=== PATIENT | female | born 1975 | race Caucasian/White ===

== ENCOUNTER → 2016-07-08 | Outpatient (CLI) | payer BC ==
--- NOTE | 2016-07-08 10:58 | MM ---
Reason for exam: additional evaluation requested from prior study. Last mammogram was performed 1 year and 2 months ago. Physical Findings: Nurse did not find any significant physical abnormalities on exam. MG 3D Diag Mammo W/Cad JUAN C Bilateral CC and MLO view(s) were taken. Prior study comparison: May 14, 2015, right breast MG 3d work up w/cad RT. May 14, 2015, right breast US breast workup limited RT. May 08, 2015, bilateral MG screening mammo w CAD. There are scattered fibroglandular densities. Nodular asymmetry lateral left breast middle depth does not persist on additional views. No significant new findings when compared with previous films. These results were verbally communicated with the patient and result sheet given to the patient on 07/08/16. ASSESSMENT: Negative, BI-RAD 1 RECOMMENDATION: Routine screening mammogram of both breasts in 1 year. Manage on a clinical basis with regard to left breast pain.
== END | disposition home or self-care (01) ==
LOC: RADMAMWWP 09:38
PROVIDERS: ATTEND Obstetrics & Gynecology
DX: R92.8 Other abnormal and inconclusive findings on diagnostic imaging of breast (principal)
CPT/HCPCS: G0204; G0279

== ENCOUNTER → 2016-12-28 | Outpatient (CLI) | payer BC ==
[2016-12-28 16:42] LABS: Follicle Stimulating Hormone 1.5 mIU/mL; Prolactin 24.7 ng/mL (3.0-18.6)
== END | disposition home or self-care (01) ==
LOC: LABWHC1 15:38
PROVIDERS: ATTEND Obstetrics & Gynecology
DX: N92.6 Irregular menstruation, unspecified (principal)
CPT/HCPCS: 36415; 82670; 83001; 83002; 84146; 84439; 84443

== ENCOUNTER → 2017-01-13 | Outpatient (CLI) | payer BC ==
--- NOTE | 2017-01-13 14:22 | US ---
EXAMINATION TYPE: US pelvic complete DATE OF EXAM: 01/13/2017 COMPARISON: NONE CLINICAL HISTORY: N93.8 Dysfunctional uterine bleeding. scheduled for an ablation next month TECHNIQUE: Transabdominal (TA) Date of LMP: bleeding x 3 mos EXAM MEASUREMENTS: Uterus: 9.6 x 4.9 x 6.5 cm Endometrial Stripe: 1.2 cm Right Ovary: 5.4 x 3.1 x 4.7 cm Left Ovary: 3.5 x 1.3 x 2.7 cm 1. Uterus: Anteverted wnl 2. Endometrium: wnl 3. Right Ovary: seen with a 3.4cm cyst 4. Left Ovary: wnl 5. Bilateral Adnexa: wnl 6. Posterior cul-de-sac: none seen IMPRESSION: Probable functional right ovarian cyst which can be confirmed with follow-up study in 4-6 weeks.
== END ==
LOC: RADUSWWP 13:58
PROVIDERS: ATTEND Obstetrics & Gynecology
DX: N93.8 Other specified abnormal uterine and vaginal bleeding (principal)
CPT/HCPCS: 76856

== ENCOUNTER → 2017-01-31 | Outpatient (CLI) | payer BC ==
[2017-01-31 14:30] LABS: Basophils # (A) 0.1 k/uL (0-0.2); Basophils % (A) 1 %; CH 31.5; Eosinophils # (A) 0.4 k/uL (0-0.7); Eosinophils % (A) 4 %; HCT 48.3 % (34.0-46.0); HDW 2.42; HGB 15.6 gm/dL (11.4-16.0); Luc # (Auto) 0.12; Luc % (Auto) 1; Lymphocytes # (A) 2.7 k/uL (1.0-4.8); Lymphocytes % (A) 29 %; MCH 29.9 pg (25.0-35.0); MCHC 32.2 g/dL (31.0-37.0); MCV 92.9 fL (80.0-100.0); Mean Platelet Volume 8.2; Monocytes # (A) 0.6 k/uL (0-1.0); Monocytes % (A) 7 %; Neutrophils # (A) 5.4 k/uL (1.3-7.7); Neutrophils % (A) 58 %; RDW 14.1 % (11.5-15.5); WBC 9.2 k/uL (3.8-10.6); WBC (Perox) 8.94
== END | disposition home or self-care (01) ==
LOC: LABPAT 14:05
PROVIDERS: ATTEND Obstetrics & Gynecology
DX: Z01.818 Encounter for other preprocedural examination (principal)
CPT/HCPCS: 85025

== ENCOUNTER 2017-02-10 09:18 | Day surgery (SDC) | payer BC ==
[2017-02-03 16:09] VITALS: BMI 31.7
--- NOTE | 2017-02-10 08:48 | P.HPOB ---
History of Present Illness H&P Date: 02/10/17 Chief Complaint: Dysfunctional uterine bleeding Patient is a 42-year-old female who has a complaint of irregular vaginal bleeding. She reports that for approximately 2 months she has had bleeding that is basically daily. She had been having very irregular cycles before that but she continues to have some bleeding every day. She is scheduled for D&C hysteroscopy with NovaSure ablation. Her goal is to be amenorrheic. She is aware of risks/benefits and alternatives. Multiple alternatives were discussed the patient including hormones or even just close observation as there is no specific made to treat this. However due to the fact that she bleeds all the time and she cannot function well due to the bleeding we are doing a NovaSure ablation with the procedure. On physical exam vital signs are stable and afebrile. Heart regular, lungs clear, extremities without pain. Abdomen soft and tender. Bowel sounds positive. Pelvic exams unremarkable. Assessment dysfunctional bleeding. Plan D&C with hysteroscopy NovaSure. Past Medical History Additional Past Medical History / Comment(s): hx. endometriosis, MIGRAINES, IBS WITH CONSTIPATION, BLOATING & BACK ACHES. , MENORRHAGIA History of Any Multi-Drug Resistant Organisms: None Reported Past Surgical History: Tubal Ligation Additional Past Surgical History / Comment(s): lapararoscopy, colonoscopy Past Anesthesia/Blood Transfusion Reactions: Motion Sickness Past Psychological History: No Psychological Hx Reported Smoking Status: Never smoker Past Alcohol Use History: Rare Past Drug Use History: None Reported - Past Family History Mother Family Medical History: Cancer Additional Family Medical History / Comment(s): CERVICAL CANCER Medications and Allergies Home Medications Medication Instructions Recorded Confirmed Type Ibuprofen 800 mg PO DAILY PRN 02/03/17 02/03/17 History Simethicone [Phazyme] 500 mg PO DAILY PRN 02/03/17 02/03/17 History Allergies Allergy/AdvReac Type Severity Reaction Status Date / Time peanut Allergy Severe Anaphylaxis Verified 02/03/17 15:44 cat dander AdvReac Unknown Unknown Verified 02/03/17 15:57 Exam Osteopathic Statement: *. No significant issues noted on an osteopathic structural exam other than those noted in the History and Physical/Consult.
[~2017-02-10 09:18] MED LIST: DEXAMETHASONE SOD PHOSPHATE 10 MG/ML 1 ML VIAL IV ONE; HYDROmorphone 1 MG/ML 1 ML SYRINGE IVP PRN; LACTATED RINGERS 1,000 ML IV SCH; LIDOCAINE 1% 20 ML VIAL (10MG/ML) FOR IV START INTRADERMA PRN; ONDANSETRON 4 MG/2 ML VIAL IVP ONE; Pre Op ABX Message 1 EACH MISC MISCELLANE ONE; SCOPOLAMINE 1.5MG/72HR PATCH TRANSDERM ONE
[2017-02-10] MEDS ORDERED: PROPOFOL 10 MG/ML 20 ML VIAL IV ONE (10:23)
[2017-02-10] MEDS ORDERED: LIDOCAINE 1% INJ 10MG/ML (20 ML MDV) ONE (10:23)
[2017-02-10] MEDS ORDERED: KETOROLAC 30 MG/ML 1 ML VIAL ONE (10:23)
[2017-02-10] MEDS ORDERED: MIDAZOLAM 2 MG/2 ML VIAL ONE (10:23)
[2017-02-10] MEDS ORDERED: fentaNYL (PF) 50 MCG/ML 2 ML AMP ONE (10:23)
--- NOTE | 2017-02-10 10:50 | P.OP ---
Date of Procedure: 02/10/17 Preoperative Diagnosis: Dysfunctional uterine bleeding Postoperative Diagnosis: Same Procedure(s) Performed: D&C with hysteroscopy and NovaSure Implants: Anesthesia: NEYA Surgeon: Jimenez Tellez Estimated Blood Loss (ml): 3 Pathology: other (Uterine curettings) Condition: stable Disposition: same day Indications for Procedure: Operative Findings: Tissue pending Description of Procedure: Patient was taken to the operating suite where a general anesthetic was found be adequate. She was prepped and draped in normal sterile fashion and placed in dorsal lithotomy position. Initially a echo was inserted into the vagina and the anterior lip cervix identified grasped with an Allis clamp uterus is then sounded to 7 cm and cervix was dilated. Camera was inserted. Proliferative endometrium was noted therefore camera was removed and sharp curettings of endometrium were obtained. This tissues collected placed on Telfa. Once this was accomplished NovaSure systems inserted with a length of 4 and a width of 2.5 it was tested enabled. Once it passes patency test it was was activated and the burn lasted for approximately 2 minutes. Once this was accomplished NovaSure system was removed and camera was reinserted with excellent burn noted. Sponge, lap, needle counts were all then correct 2 and all instruments removed. Patient tolerated surgery very well area patient taken to the recovery room in stable condition. Plan - Discharge Summary New Discharge Prescriptions: New Ibuprofen 800 mg PO Q8HR PRN #30 tablet PRN Reason: Pain No Action Ibuprofen 800 mg PO DAILY PRN PRN Reason: Pain Simethicone [Phazyme] 500 mg PO DAILY PRN PRN Reason: GAS, BLOATING Discharge Medication List Ibuprofen 800 mg PO DAILY PRN 02/03/17 [History] Simethicone [Phazyme] 500 mg PO DAILY PRN 02/03/17 [History] Ibuprofen 800 mg PO Q8HR PRN #30 tablet 02/10/17 [Rx] Follow up Appointment(s)/Referral(s): Jimenez Tellez DO [Doctor of Osteopathic Medicine] - 2 Weeks Activity/Diet/Wound Care/Special Instructions: Pelvic rest, limit stairs and driving and heavy lifting for the next few days. Call the office for any high temperatures, heavy bleeding, or severe pain
[2017-02-10 11:07] VITALS: TEMP 97
[2017-02-10 11:15] VITALS: RESP 16
[2017-02-10] MEDS ORDERED: LACTATED RINGERS 1,000 ML IV ONE ×2 (11:18)
[2017-02-10 11:57] VITALS: BP 102/68; PULSE 76
== END 2017-02-10 12:21 | disposition home or self-care (01) ==
LOC: OR 09:18
PROVIDERS: ATTEND Obstetrics & Gynecology
DX: N93.8 Other specified abnormal uterine and vaginal bleeding (principal); Z85.41 Personal history of malignant neoplasm of cervix uteri; Z91.010 Allergy to peanuts; Z91.09 Other allergy status, other than to drugs and biological substances
CPT/HCPCS: 81025; 88305; 58563; J2250; J1100; J2405; J2001; J3010; J1885; J2704

== ENCOUNTER → 2017-11-02 | Outpatient (CLI) | payer BC ==
--- NOTE | 2017-11-03 11:36 | MM ---
Reason for exam: screening (asymptomatic). Last mammogram was performed 1 year and 4 months ago. Physical Findings: A clinical breast exam by your physician is recommended on an annual basis and results should be correlated with mammographic findings. MG 3D Screening Mammo W/Cad Bilateral CC and MLO view(s) were taken. Prior study comparison: July 08, 2016, bilateral MG 3d diag mammo w/cad JUAN C. May 14, 2015, right breast MG 3d work up w/cad RT. The breast tissue is heterogeneously dense. This may lower the sensitivity of mammography. There is a stable central slightly upper and lateral middle depth right breast mass back to 2014. No suspicious abnormality in the left breast. No significant changes when compared with prior studies. ASSESSMENT: Incomplete: need additional imaging evaluation, BI-RAD 0 RECOMMENDATION: Ultrasound of the right breast. (palpable per patient) [facility] will attempt to contact patient to return for ultrasound.
== END | disposition home or self-care (01) ==
LOC: RADMAMWWP 16:54
PROVIDERS: ATTEND Obstetrics & Gynecology
DX: Z12.31 Encounter for screening mammogram for malignant neoplasm of breast (principal)
CPT/HCPCS: 77063; 77067

== ENCOUNTER → 2017-11-09 | Outpatient (CLI) | payer BC ==
--- NOTE | 2017-11-09 11:24 | USB ---
Reason for exam: additional evaluation requested from abnormal screening. Physical Findings: Nurse Summary: Patient complains of right breast lump x 2 weeks, not palpable today, left breast nodule 1.5cm upper outer quadrant (nurse mj). US Breast Workup Limited JUAN C Right limited breast ultrasound including focal area of concern, retroareolar and axilla demonstrates no cystic or solid lesion seen. Left limited breast ultrasound including focal area of concern, retroareolar and axilla demonstrates no cystic or solid lesion seen. These results were verbally communicated with the patient and result sheet given to the patient on 11/09/17. ASSESSMENT: Negative, BI-RAD 1 RECOMMENDATION: Return to routine screening mammogram schedule for both breasts. Manage patient on a clinical basis.
== END | disposition home or self-care (01) ==
LOC: RADUSWWP 10:13
PROVIDERS: ATTEND Obstetrics & Gynecology
DX: R92.8 Other abnormal and inconclusive findings on diagnostic imaging of breast (principal)

== ENCOUNTER → 2018-08-03 | Outpatient (CLI) | payer BC ==
--- NOTE | 2018-08-03 16:27 | CT ---
EXAMINATION TYPE: CT brain wo con DATE OF EXAM: 08/03/2018 COMPARISON: NONE HISTORY: Dizziness and right sided vision changes x5 days. CT DLP: 1159 mGycm. Automated Exposure Control for Dose Reduction was Utilized. TECHNIQUE: CT scan of the head is performed without contrast. FINDINGS: There is no acute intracranial hemorrhage, mass effect, or midline shift identified. The ventricles and sulci are within normal limits in size. The globes are intact. Scant mucosal thicken ing is seen within the left maxillary sinus. The remaining visualized sinuses are clear. IMPRESSION: No acute intracranial hemorrhage, mass effect, or midline shift is seen.
== END ==
LOC: RADCTMAIN 15:17
PROVIDERS: ATTEND Physician Assistant
DX: R51 Headache (principal)
CPT/HCPCS: 70450

== ENCOUNTER → 2018-12-05 | Outpatient (CLI) | payer BC ==
--- NOTE | 2018-12-05 11:55 | MM ---
Reason for exam: screening (asymptomatic). Last mammogram was performed 1 year and 1 month ago. Physical Findings: A clinical breast exam by your physician is recommended on an annual basis and results should be correlated with mammographic findings. MG 3D Screening Mammo W/Cad Bilateral CC and MLO view(s) were taken. Prior study comparison: November 02, 2017, bilateral MG 3d screening mammo w/cad. July 08, 2016, bilateral MG 3d diag mammo w/cad JUAN C. The breast tissue is heterogeneously dense. This may lower the sensitivity of mammography. There are benign appearing round calcifications in the left breast. There is no discrete abnormality. ASSESSMENT: Benign, BI-RAD 2 RECOMMENDATION: Routine screening mammogram of both breasts in 1 year.
== END | disposition home or self-care (01) ==
LOC: RADMAMWWP 09:14
PROVIDERS: ATTEND Obstetrics & Gynecology
DX: Z12.31 Encounter for screening mammogram for malignant neoplasm of breast (principal)
CPT/HCPCS: 77063; 77067

== ENCOUNTER → 2019-04-04 | Outpatient (CLI) | payer BC ==
[2019-04-04 16:46] LABS: Basophils # (A) 0.1 k/uL (0-0.2); Basophils % (A) 1 %; Eosinophils # (A) 0.3 k/uL (0-0.7); Eosinophils % (A) 3 %; HCT 42.4 % (34.0-46.0); HGB 14.4 gm/dL (11.4-16.0); Lymphocytes # (A) 2.9 k/uL (1.0-4.8); Lymphocytes % (A) 35 %; MCH 30.7 pg (25.0-35.0); MCHC 33.8 g/dL (31.0-37.0); MCV 90.8 fL (80.0-100.0); Mean Platelet Volume 6.8; Monocytes # (A) 0.5 k/uL (0-1.0); Monocytes % (A) 6 %; Neutrophils # (A) 4.4 k/uL (1.3-7.7); Neutrophils % (A) 54 %; Platelet Count 231 k/uL (150-450); RBC 4.67 m/uL (3.80-5.40); WBC 8.2 k/uL (3.8-10.6)
== END | disposition home or self-care (01) ==
LOC: LABPAT 14:35
PROVIDERS: ATTEND Obstetrics & Gynecology
DX: Z01.812 Encounter for preprocedural laboratory examination (principal)
CPT/HCPCS: 36415; 85025

== ENCOUNTER → 2019-04-05 | Outpatient (CLI) | payer BC ==
[2019-04-05 13:49] LABS: African American GFR (CKD) >90 (>60 ml/min/1.73 sqM); Anion Gap 8 mmol/L; Blood Urea Nitrogen 12 mg/dL (7-17); Calcium 9.2 mg/dL (8.4-10.2); Carbon Dioxide 27 mmol/L (22-30); Chloride 104 mmol/L (98-107); Glucose 79 mg/dL (74-99); Potassium 4.3 mmol/L (3.5-5.1); Sodium 139 mmol/L (137-145)
== END | disposition home or self-care (01) ==
LOC: LABPAT 12:38
PROVIDERS: ATTEND Obstetrics & Gynecology
DX: Z01.812 Encounter for preprocedural laboratory examination (principal)
CPT/HCPCS: 80048

== ENCOUNTER 2019-04-12 05:57 | Observation (INO) | payer BC ==
--- NOTE | 2019-04-11 16:44 | P.HPOB ---
History of Present Illness H&P Date: 04/11/19 Chief Complaint: Dysfunctional uterine bleeding: Failed NovaSure Doris is a 45-year-old female who underwent a NovaSure surgery and was without bleeding for 8 months. But since January she is had daily bleeding. This become very disruptive to her lifestyle and as she still has cramping and pain. Moving forward with a robotic-assisted left scopic hysterectomy possible ARIES possible BSO. Risks/benefits/alternatives to this procedure were discussed with the patient in detail and all questions were answered for her prior to proceeding to the operating room. We did offer discussed more conservative measures but as this is made that she is unable to function well on her routine basis we are moving forward with surgical intervention. Past Medical History Additional Past Medical History / Comment(s): Hx IBS, migraines, hx endom etriosis. Ongoing, continuous menses. Awoke 04/08/19 w/ sore throat, sl nasal congestion, improved w/ Rx - notified Dr Tellez. History of Any Multi-Drug Resistant Organisms: None Reported Past Surgical History: Tubal Ligation, Uterine Ablation Additional Past Surgical History / Comment(s): lapararoscopy, colonoscopy Past Anesthesia/Blood Transfusion Reactions: Motion Sickness Smoking Status: Never smoker - Past Family History Mother Family Medical History: Cancer Additional Family Medical History / Comment(s): cervical CA Medications and Allergies Home Medications Medication Instructions Recorded Confirmed Type Ibuprofen 800 mg PO Q8H PRN 02/03/17 04/09/19 History Acetaminophen [Tylenol Extra 1,000 mg PO Q8H PRN 04/09/19 04/09/19 History Strength] Phentermine HCl [Adipex-P] 37.5 mg PO DAILY 04/09/19 04/09/19 History Vitamin C/Biotin [Hair, Skin and 1 tab PO DAILY 04/09/19 04/09/19 History Nails] guaiFENesin-DM 600/30MG [Mucinex 1 each PO Q12HR PRN 04/09/19 04/09/19 History Dm] Allergies Allergy/AdvReac Type Severity Reaction Status Date / Time peanut Allergy Severe Anaphylaxis Verified 04/09/19 10:33 gluten Allergy Abdominal Verified 04/09/19 10:33 Pain, diarrhea cat dander AdvReac Unknown Unknown Verified 04/09/19 10:33 Exam Osteopathic Statement: *. No significant issues noted on an osteopathic structural exam other than those noted in the History and Physical/Consult. - OBG Physical Exam Breast: both: normal (no masses) Abdomen: bowel sounds normal, no diffuse tenderness, no bruit present, no guarding noted, no hepatomegaly, no splenomegaly, no mass Vulva: both: normal Vagina: normal moisture, no discharge Cervix: no lesion, no discharge Uterus: normal size, normal contour Adnexa: both: normal Anus/Rectum: normal perianal skin, no rectal mass, no hemorrhoids, heme negative
[~2019-04-12 05:57] MED LIST changes: -HYDROmorphone 1 MG/ML 1 ML SYRINGE IVP PRN; -LACTATED RINGERS 1,000 ML IV SCH; -Pre Op ABX Message 1 EACH MISC MISCELLANE ONE; -SCOPOLAMINE 1.5MG/72HR PATCH TRANSDERM ONE; +fentaNYL (PF) 50 MCG/ML 2 ML AMP IV PRN
[2019-04-12] MEDS ORDERED: LIDOCAINE 1% 20 ML VIAL (10MG/ML) FOR IV START INTRADERMA ONE (06:50)
[2019-04-12] MEDS: LACTATED RINGERS 1,000 ML IV SCH ×3 (06:50→13:13)
[2019-04-12] MEDS ORDERED: BUPIVACAINE (PF) 0.25% 30 ML VIAL SQ ONE ×2 (07:18→09:05)
[2019-04-12] MEDS ORDERED: MIDAZOLAM 2 MG/2 ML VIAL ONE (07:24)
[2019-04-12] MEDS ORDERED: ROCURONIUM BROMIDE 10 MG/ML 10 ML VIAL IV ONE (07:24)
[2019-04-12] MEDS ORDERED: LIDOCAINE 1% INJ 10MG/ML (20 ML MDV) ONE (07:24)
[2019-04-12] MEDS ORDERED: SUCCINYLCHOLINE CHLORIDE 100 MG/5 ML SYR IV ONE (07:24)
[2019-04-12] MEDS ORDERED: PROPOFOL 10 MG/ML 20 ML VIAL IV ONE (07:24)
[2019-04-12] MEDS ORDERED: fentaNYL (PF) 50 MCG/ML 2 ML AMP ONE (07:24)
[2019-04-12] MEDS ORDERED: NEOSTIGMINE 1 MG/ML 10 ML VIAL ONE (07:24)
[2019-04-12] MEDS ORDERED: GLYCOPYRROLATE 0.2 MG/ML 2 ML VIAL ONE (07:24)
[2019-04-12] MEDS ORDERED: SIMETHICONE 80 MG CHEWABLE PO PRN (09:16)
[2019-04-12] MEDS ORDERED: ONDANSETRON 4 MG/2 ML VIAL IVP PRN (09:16)
--- NOTE | 2019-04-12 09:25 | P.OP ---
Date of Procedure: 04/12/19 Preoperative Diagnosis: Dysfunctional uterine bleeding: Failed NovaSure Postoperative Diagnosis: Same Procedure(s) Performed: Robotic-assisted laparoscopic hysterectomy with bilateral salpingectomy, left ovarian cystotomy Anesthesia: YONY Surgeon: Jimenez Tellez Field Talent Qualification Specialist #1: Yasmin Reno Estimated Blood Loss (ml): 75 IV fluids (ml): 600 Urine output (ml): 100 Pathology: other (Uterus, cervix, fallopian tubes) Condition: stable Disposition: floor Operative Findings: Grossly enlarged uterus with fibroid noted posteriorly left ovarian cyst which was drained clear fluid Description of Procedure: Patient was taken to the operating suite where a general anesthetic was found be adequate. She was prepped and draped in the normal sterile fashion and placed in dorsal lithotomy position. Initially a weighted speculum was inserted in vagina and anterior lip cervix identified grasped with a single-tooth tenaculum. Cervix was then dilated and sounded to 11 cm. Cup size 3.5 cm. Once this was completed with a Sharri manipulator 10 and 3.5 inserted sutures placed at 3 and 9 to help removal. Kahn cath was then placed and close were changed and attention was turned to abdominal portion procedure with other incidents removed from the vagina. Initially 2 mL of quarter percent Marcaine was injected 2 cm above the umbilicus through this incision a 5 mm skin incision was made and through this incision under direct visualization with an optical trocar and sleeve the camera was inserted. Once peritoneal placement was assured gas allowed to fully insufflate the abdomen and patient was then placed in steep Trendelenburg position. 2 lateral ports were then placed approximately 10 cm lateral to the umbilicus and same line. These were through 8 mm skin incisions and were da Carlos Manuel ports and sleeves. Once this was accomplished fourth port and sleeve was inserted through the abdomen through 170 incision between the left lateral and the medial port. Medial port was exchanged for a robotic port and robot was brought in and docked. Once this was accomplished using [place] grasper in the 2 arm and a scissor and the one arm I did break scrub and go to the console. Observations Ryan noted. First the right fallopian tube was cauterized through the mesosalpinx and removed once this was completed a functional cyst was noted on the left ovary and it was drained using the scissor. Once this was completed utero-ovarian ligament was identified cauterized and cut transection the broad ligament tissues to the surrounding was then cauterized and cut and then the left round ligament was cauterized cut and the anterior posterior leaves were developed. This was done down to level of the bladder flap bladder flap was then undermined carried across face the uterus and then bluntly dissected out of the operative field. In summary fashion right side was developed. During this process the Filshie tubes were identified and also removed. Once both sides were fully developed bladder was verified out of the operative field and uterus was retroverted cup was identified through the pupil Coso and entered sharply with scissor and an anterior colpotomy was made. Once this was accomplished following the couple around in 3 and 60 fashion cheating head to maintain excellent hemostasis once 3 and 60 was obtained uterus was brought into the vagina to maintain pneumoperitoneum. Evaluation the pedicles revealed no bleeding and therefore incidents removed and exchanged for a cardia grasper and a make suture cut and using to OB lock suture the vaginal cuff was reapproximated in a running fashion. Once this was completed pelvis was irrigated no bleeding is noted therefore WAS removed and gas was allowed to expel from the abdomen. 5 deep breaths were provided during this process. At this point patient was taken out of Trendelenburg and robot was removed from the field Dr. Reno close the incision subcuticularly and I did do a cystoscopy with good flow noted from both ureteral jets. Once fully completed all incidents removed Kahn cath was replaced and the remaining 8 mL of quarter percent Marcaine was injected around the incisions. Sponge, lap, needle counts were all correct 2. Patient was then taken to the recovery room in stable and satisfactory condition.
[2019-04-12] MEDS: HYDROmorphone 0.5 MG/0.5 ML SYRINGE IVP PRN ×3 (09:39→10:17)
[2019-04-12] MEDS: KETOROLAC 30 MG/ML 1 ML VIAL IVP PRN ×3 (09:47→22:51)
[2019-04-12 13:21] VITALS: BMI 33.6
[2019-04-12] MEDS: HYDROcodone/APAP 5-325MG 1 EACH TAB PO PRN ×2 (17:20→20:06)
[2019-04-12] MEDS: SENNOSIDES-DOCUSATE SODIUM 1 EACH TAB PO SCH (20:07)
[2019-04-13] MEDS: HYDROcodone/APAP 5-325MG 1 EACH TAB PO PRN ×2 (00:29→10:33)
--- NOTE | 2019-04-13 08:25 | P.DS ---
Providers Date of admission: 04/13/19 00:06 Expected date of discharge: 04/13/19 Attending physician: Jimenez Tellez Primary care physician: Elias Gutierrez [facility] Course: Doris is doing very well postop day 1. She is ambulating, voiding and tolerating her diet. She voices no complaints. She is not passed flatus but we'll continue and benefits morning with expectation once placed being passed to be able to go home. Vital signs are otherwise stable and afebrile. Heart regular, lungs clear, extremities without pain. Abdomen is soft positive bowel sounds are noted and her incisions are clean dry and intact. Assessment postop day 1. Plan discharged home follow up with me in approximately 10 days to 2 weeks. Prescriptions for Motrin and Largo are provided and discharge instructions were thoroughly reviewed. She is stable for discharge at this time. Patient Condition at Discharge: Good Plan - Discharge Summary Discharge Rx Participant: No New Discharge Prescriptions: New Ibuprofen [Motrin] 600 mg PO Q6HR PRN #30 tab PRN Reason: Pain HYDROcodone/APAP 5-325MG [Largo 5-325] 1 tab PO Q4HR PRN #30 tab PRN Reason: Pain No Action Ibuprofen 800 mg PO Q8H PRN PRN Reason: Pain guaiFENesin-DM 600/30MG [Mucinex Dm] 1 each PO Q12HR PRN PRN Reason: Congestion Vitamin C/Biotin [Hair, Skin and Nails] 1 tab PO DAILY Acetaminophen [Tylenol Extra Strength] 1,000 mg PO Q8H PRN PRN Reason: Pain Phentermine HCl [Adipex-P] 37.5 mg PO DAILY Discharge Medication List Ibuprofen 800 mg PO Q8H PRN 02/03/17 [History] Acetaminophen [Tylenol Extra Strength] 1,000 mg PO Q8H PRN 04/09/19 [History] Phentermine HCl [Adipex-P] 37.5 mg PO DAILY 04/09/19 [History] Vitamin C/Biotin [Hair, Skin and Nails] 1 tab PO DAILY 04/09/19 [History] guaiFENesin-DM 600/30MG [Mucinex Dm] 1 each PO Q12HR PRN 04/09/19 [History] HYDROcodone/APAP 5-325MG [Largo 5-325] 1 tab PO Q4HR PRN #30 tab 04/13/19 [Rx] Ibuprofen [Motrin] 600 mg PO Q6HR PRN #30 tab 04/13/19 [Rx] Follow up Appointment(s)/Referral(s): Jimenez Tellez DO [Doctor of Osteopathic Medicine] - 10 Days Activity/Diet/Wound Care/Special Instructions: No heavy lifting, limit stairs and driving and complete pelvic rest. No tub baths for 1 week. Call for any high temperatures, heavy bleeding, or severe pain Discharge Disposition: HOME SELF-CARE
[2019-04-13] MEDS: SENNOSIDES-DOCUSATE SODIUM 1 EACH TAB PO SCH (08:26)
[2019-04-13] MEDS: KETOROLAC 30 MG/ML 1 ML VIAL IVP PRN (08:32)
[2019-04-13 09:33] VITALS: BP 118/82; PULSE 74; RESP 20; TEMP 97.5
== END 2019-04-13 10:53 | disposition home or self-care (01) ==
LOC: OR 05:57 → 6PED 09:14 → OR 04-13 00:02 → 6PED 04-13 00:06
PROVIDERS: ADMIT Obstetrics & Gynecology; ATTEND Obstetrics & Gynecology
DX: D25.2 Subserosal leiomyoma of uterus (principal); N80.0 Endometriosis of uterus; N83.202 Unspecified ovarian cyst, left side; N93.8 Other specified abnormal uterine and vaginal bleeding; K58.9 Irritable bowel syndrome, unspecified; G43.909 Migraine, unspecified, not intractable, without status migrainosus; Z80.49 Family history of malignant neoplasm of other genital organs; Z79.1 Long term (current) use of non-steroidal anti-inflammatories (NSAID); Z79.899 Other long term (current) drug therapy; Z91.010 Allergy to peanuts; Z91.018 Allergy to other foods; J30.81 Allergic rhinitis due to animal (cat) (dog) hair and dander
CPT/HCPCS: 49322; 58571; S2900; 81025; 86850; 86900; 86901; 88307

== ENCOUNTER 2019-11-13 23:01 | Emergency (ER) | payer BC ==
[2019-11-13] MEDS ORDERED: LIDOCAINE VISCOUS 2% 15 ML CUP MUCOUS MEM STA (23:33)
[2019-11-13] MEDS ORDERED: HYDROcodone/APAP 5-325MG 1 EACH TAB PO STA (23:33)
--- NOTE | 2019-11-13 23:46 | ED ---
Skin/Abscess/FB HPI - General Chief complaint: Skin/Abscess/Foreign Body Stated complaint: Lip sores due to meds Time Seen by Provider: 11/13/19 23:13 Source: patient Mode of arrival: ambulatory Limitations: no limitations - History of Present Illness Initial comments: This patient is a 44-year-old woman presenting to be evaluated for lip pain. The patient states that she had been given flourouracill cream to use on her lower lip for "precancerous cells," and that one to 2 days ago she noted she was getting some sores on the lip, she was developing pain and swelling. The patient states that she stopped using the medication and called her doctor. She was given prescription for Bactroban cream which she use but states that the burning and swelling continued. She then was given prescription for prednisone taper which she has taken one dose of so far. The patient states she is continuing to have some pain to the swelling is somewhat improved. She did try a [place] she had leftover which gave a little bit of relief. She has not had fevers. There is no purulent discharge. MD complaint: lesion -: days(s) Tetanus Up to Date: yes Location: face Severity: severe Quality: burning Consistency: intermittent Improves with: none Worsens with: medication Context: new medication Associated symptoms: denies other symptoms Treatments Prior to Arrival: corticosteroid, antibiotic - Related Data Home Medications Medication Instructions Recorded Confirmed Ibuprofen 800 mg PO Q8H PRN 02/03/17 04/12/19 Acetaminophen [Tylenol Extra 1,000 mg PO Q8H PRN 04/09/19 04/12/19 Strength] Phentermine HCl [Adipex-P] 37.5 mg PO DAILY 04/09/19 04/12/19 Vitamin C/Biotin [Hair, Skin and 1 tab PO DAILY 04/09/19 04/12/19 Nails] guaiFENesin-DM 600/30MG [Mucinex 1 each PO Q12HR PRN 04/09/19 04/12/19 Dm] Previous Rx's Medication Instructions Recorded HYDROcodone/APAP 5-325MG [[place] 1 tab PO Q4HR PRN #30 tab 04/13/19 5-325] Ibuprofen [Motrin] 600 mg PO Q6HR PRN #30 tab 04/13/19 Hydrocodone/Acetaminophen [[place] 1 each PO Q6HR PRN #15 tab 11/13/19 4-325] Allergies Allergy/AdvReac Type Severity Reaction Status Date / Time peanut Allergy Severe Anaphylaxis Verified 11/13/19 23:11 gluten Allergy Abdominal Verified 11/13/19 23:11 Pain, diarrhea cat dander AdvReac Unknown Unknown Verified 11/13/19 23:11 Review of Systems ROS Statement: Those systems with pertinent positive or pertinent negative responses have been documented in the HPI. ROS Other: All systems not noted in ROS Statement are negative. Constitutional: Denies: fever, chills ENT: Reports: other (Lip pain and swelling). Denies: throat pain, congestion Respiratory: Denies: cough, dyspnea, wheezes Gastrointestinal: Denies: abdominal pain, vomiting Skin: Reports: as per HPI, lesions. Denies: rash Past Medical History Additional Past Medical History / Comment(s): hx. endometriosis,. mass found on lip. sent to plastic surgery- for removal of mass. 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 today was day 9. History of Any Multi-Drug Resistant Organisms: None Reported Past Surgical History: Tubal Ligation Additional Past Surgical History / Comment(s): lapararoscopy, colonoscopy Past Anesthesia/Blood Transfusion Reactions: Motion Sickness Past Psychological History: No Psychological Hx Reported Past Alcohol Use History: Rare Past Drug Use History: None Reported General Exam Limitations: no limitations General appearance: alert, in no apparent distress Head exam: Present: atraumatic, normocephalic Eye exam: Present: normal appearance. Absent: scleral icterus, conjunctival injection ENT exam: Present: other (Patient does have some chemical burn to the mucosal surface of the lower lip. There does not appear to be any purulent discharge nor any evidence of secondary infection. No warmth.) Neck exam: Present: normal inspection, full ROM. Absent: tenderness, meningismus, lymphadenopathy Respiratory exam: Present: normal lung sounds bilaterally Skin exam: Present: warm, dry, intact, normal color. Absent: rash Course Vital Signs 11/13/19 11/14/19 23:02 00:13 Temperature 98.3 F 98.9 F Pulse Rate 122 H 90 Respiratory 20 17 Rate Blood Pressure 150/91 144/92 O2 Sat by Pulse 97 95 Oximetry Medical Decision Making - Medical Decision Making Patient's 44-year-old woman with some chemical burn to the mucosa of the lower lip. There does not appear to be any secondary infection. The patient has started systemic steroid for this and states that the swelling has already started to decrease some. Discussed appropriate further care and follow-up. Discussed signs and symptoms of secondary infection as well as return parameters. Disposition Clinical Impression: Cheilitis Disposition: HOME SELF-CARE Condition: Good Instructions (If sedation given, give patient instructions): Chemical Skin Burn (ED) Prescriptions: Hydrocodone/Acetaminophen [[place] 5-325] 1 each PO Q6HR PRN #15 tab PRN Reason: Pain Is patient prescribed a controlled substance at d/c from ED?: Yes Referrals: Elias Gutierrez DO [Primary Care Provider] - 1-2 days
[2019-11-14 00:17] VITALS: BP 144/92; PULSE 90; RESP 17; TEMP 98.9
== END 2019-11-14 00:10 | disposition home or self-care (01) ==
LOC: EC 23:01
DX: T45.1X1A Poisoning by antineoplastic and immunosuppressive drugs, accidental (unintentional), initial encounter (principal); T20.42XA Corrosion of unspecified degree of lip(s), initial encounter; Z79.899 Other long term (current) drug therapy; Z91.010 Allergy to peanuts; Z91.018 Allergy to other foods; Z91.048 Other nonmedicinal substance allergy status
CPT/HCPCS: 99283

== ENCOUNTER → 2020-02-11 | Outpatient (CLI) | payer BC | END | disposition home or self-care (01) | LOC: LABWHC1 14:34 | PROVIDERS: ATTEND Family Medicine | DX: Z20.828 Contact with and (suspected) exposure to other viral communicable diseases (principal) | CPT/HCPCS: U0003; C9803 ==

== ENCOUNTER → 2020-08-07 | Outpatient (CLI) | payer BC ==
--- NOTE | 2020-08-11 09:53 | MM ---
Reason for exam: screening (asymptomatic). Last mammogram was performed 1 year and 8 months ago. History: Took hormonal contraceptives for 6 months. Took estrogen for 6 months. Physical Findings: A clinical breast exam by your physician is recommended on an annual basis and results should be correlated with mammographic findings. MG 3D Screening Mammo W/Cad Bilateral CC and MLO view(s) were taken. Prior study comparison: December 05, 2018, bilateral MG 3d screening mammo w/cad. November 02, 2017, bilateral MG 3d screening mammo w/cad. July 08, 2016, bilateral MG 3d diag mammo w/cad [facility]. May 14, 2015, right breast MG 3d work up w/cad RT. The breast tissue is heterogeneously dense. This may lower the sensitivity of mammography. Focal asymmetry right breast, lobular appearance, present previously. No significant changes when compared with prior studies. ASSESSMENT: Benign, BI-RAD 2 RECOMMENDATION: Routine screening mammogram of both breasts in 1 year.
== END | disposition home or self-care (01) ==
LOC: RADMAMWWP 11:38
PROVIDERS: ATTEND Family Medicine
DX: Z12.31 Encounter for screening mammogram for malignant neoplasm of breast (principal)
CPT/HCPCS: 77063; 77067

== ENCOUNTER → 2021-08-20 | Outpatient (CLI) | payer BC ==
--- NOTE | 2021-08-21 14:41 | MM ---
Reason for exam: screening (asymptomatic). Last mammogram was performed 1 year ago. History: Patient history of other cancer. Took hormonal contraceptives for 6 months. Took estrogen for 6 months. Physical Findings: A clinical breast exam by your physician is recommended on an annual basis and results should be correlated with mammographic findings. MG 3D Screening Mammo W/Cad Bilateral CC and MLO view(s) were taken. Prior study comparison: August 07, 2020, bilateral MG 3d screening mammo w/cad. December 05, 2018, bilateral MG 3d screening mammo w/cad. There are scattered fibroglandular densities. Focal asymmetry right middle position. No significant changes when compared with prior studies. ASSESSMENT: Benign, BI-RAD 2 RECOMMENDATION: Routine screening mammogram of both breasts in 1 year.
== END | disposition home or self-care (01) ==
LOC: RADMAMWWP 07:34
PROVIDERS: ATTEND Family Medicine
DX: Z12.31 Encounter for screening mammogram for malignant neoplasm of breast (principal)
CPT/HCPCS: 77063; 77067

== ENCOUNTER → 2021-09-05 | Outpatient (CLI) | payer BC ==
--- NOTE | 2021-09-05 08:33 | MR ---
EXAMINATION TYPE: MR brain wo/w con DATE OF EXAM: 09/05/2021 COMPARISON: CT brain August 03, 2018 HISTORY: Migraines, confusion, memory loss, family history of brain cancer(Dad), pre cancer on lower lip TECHNIQUE: Multiplanar, multisequence images of the brain and brainstem is performed without and with IV contras t, utilizing 10.5 mL intravenous Gadavist . FINDINGS: Diffusion weighted images demonstrate no evidence of a recent infarct or other diffusion ab normality. There is no extra-axial fluid collection or significant white matter signal abnormality. The ventricular system and cisternal spaces are normal in size and appearance. The brain volume is age appropriate. Midline structures redemonstrates somewhat empty sella morphology. The craniocervical junction remai ns within normal limits. Post contrast images demonstrate no abnormal enhancement. The dural venous sinuses appear patent. The visualized sinuses are clear and the globes are intact. IMPRESSION: No significant finding is seen to account for patient's clinical symptoms.
== END | disposition home or self-care (01) ==
LOC: RADMRIMAIN 07:27
PROVIDERS: ATTEND Family Medicine
DX: G43.909 Migraine, unspecified, not intractable, without status migrainosus (principal); R41.3 Other amnesia; Z80.8 Family history of malignant neoplasm of other organs or systems
CPT/HCPCS: 70553; A9585

== ENCOUNTER → 2022-09-09 | Outpatient (CLI) | payer BC ==
--- NOTE | 2022-09-10 08:10 | MM ---
Reason for Exam: Screening (asymptomatic). Last screening mammogram was performed 12 month(s) ago. Patient History: Menarche at age 11. First Full-Term at age 15. Hysterectomy at age 43. Other cancer. Estrogen for 6 months. Hormonal Contraceptives for 6 months. Last menstrual period: Risk Values: Kateryna 5 year model risk: 0.6%. NCI Lifetime model risk: 7.7%. Prior Study Comparison: 12/05/2018 Bilateral Screening Mammogram, [facility]. 08/07/2020 Bilateral Screening Mammogram, [facility]. 08/20/2021 Bilateral Screening Mammogram, [facility]. Tissue Density: The breast tissue is heterogeneously dense. This may lower the sensitivity of mammography. Findings: Analyzed By CAD. There is no suspicious group of microcalcifications or new suspicious mass in either breast. Overall Assessment: Benign, BI-RAD 2 Management: Screening Mammogram of both breasts in 1 year. A clinical breast exam by your physician is recommended on an annual basis and results should be correlated with mammographic findings. Electronically signed and approved by: Rakesh Chavarria M.D. Radiologis
== END | disposition home or self-care (01) ==
LOC: RADMAMWWP 16:47
PROVIDERS: ATTEND Family Medicine
DX: Z12.31 Encounter for screening mammogram for malignant neoplasm of breast (principal)
CPT/HCPCS: 77063; 77067

== ENCOUNTER → 2023-09-22 | Outpatient (CLI) | payer BC ==
--- NOTE | 2023-09-22 13:22 | MM ---
Reason for Exam: Screening (asymptomatic). Last mammogram was performed 1 year(s) and 1 month(s) ago. Patient History: Menarche at age 11. First Full-Term at age 15. Hysterectomy at age 43. Other cancer. Estrogen for 6 months. Hormonal Contraceptives for 6 months. Mother had ovarian cancer, age 39. Risk Values: Kateryna 5 year model risk: 0.7%. NCI Lifetime model risk: 7.6%. Prior Study Comparison: 08/07/2020 Bilateral Screening Mammogram, [facility]. 08/20/2021 Bilateral Screening Mammogram, [facility]. 09/09/2022 Bilateral MG 3D screening mammo w/cad, [facility]. Tissue Density: The breasts are heterogeneously dense, which may obscure small masses. Findings: Analyzed By CAD. There is no suspicious group of microcalcifications or new suspicious mass in either breast. Overall Assessment: Negative, BI-RAD 1 Management: Screening Mammogram of both breasts in 1 year. . Patient should continue monthly self-breast exams. A clinical breast exam by your physician is recommended on an annual basis. This exam should not preclude additional follow-up of suspicious palpable abnormalities. Note on Kateryna scores and lifetime risk: 1. A Kateryna score greater than 3% is considered moderate risk. If this is the case, consider specialist referral to assess eligibility for a risk reducing agent. 2. If overall lifetime risk for the development of breast cancer is 20% or higher, the patient may qualify for future screening with alternating mammogram and breast MRI. Electronically signed and approved by: Rakesh Chavarria M.D. Radiologis
== END | disposition home or self-care (01) ==
LOC: RADMAMWWP 07:51
PROVIDERS: ATTEND Family Medicine
DX: Z12.31 Encounter for screening mammogram for malignant neoplasm of breast (principal)
CPT/HCPCS: 77063; 77067

== ENCOUNTER → 2023-11-19 | Outpatient (CLI) | payer BC ==
--- NOTE | 2023-11-19 09:58 | MR ---
EXAMINATION TYPE: MR lumbar spine wo con DATE OF EXAM: 11/19/2023 COMPARISON: None HISTORY: Severe low back pain into right side, TECHNIQUE: Multiplanar, multisequence images of the lumbar spine were acquired without IV contrast. Findings: The lumbar vertebral segments are normal in height and alignment and there is no fracture or subluxat ion. The disc spaces are well preserved in height. There is mild loss of signal intensity L4-5 discs indic ating minimal degenerative disease. There is no lumbar disc protrusion or herniation. There is no spinal stenosis and the conus medullaris and cauda equina appear normal. There is no neural foraminal stenosis. There is mild facet arthropathy at the L4-5 and L5-S1 levels. Paraspinal soft tissues unremarkable. IMPRESSION: 1. No lumbar spine fracture or malalignment. 2. No lumbar disc herniation. 3. No lumbar canal stenosis or neural foraminal stenosis. 4. Mild facet arthropathy in the lower lumbar spine.
== END | disposition home or self-care (01) ==
LOC: RADMRIMAIN 08:58
PROVIDERS: ATTEND Family Medicine
DX: M47.816 Spondylosis without myelopathy or radiculopathy, lumbar region (principal)
CPT/HCPCS: 72148

== ENCOUNTER → 2024-08-23 | Outpatient (CLI) | payer BC ==
[2024-08-23 14:43] VITALS: BP 136/84; PULSE 88; RESP 16; TEMP 98
--- NOTE | 2024-08-29 10:48 | P.SLEEP ---
History of Present Illness DATE: 08/23/2024 CONSULTATION/NEW PATIENT EVALUATION HISTORY OF PRESENT ILLNESS/SLEEP-WAKE EVALUATION: 49-year-old lady had been evaluated in the sleep center for insomnia and possible obstructive sleep apnea hypopnea syndrome. SLEEP SCHEDULE: Usually sleep schedule from midnight until 5 AM on weekdays and from 1 AM until 6 AM on weekend. FALLING ASLEEP: Patient has difficulties with falling asleep, although no TV in bedroom. DURING SLEEP: Patient usually sleeps on the side position and wakes up from sleep 3 times. No nocturia. No history of hypnogogical hallucinations, sleep paralysis, or cataplexy. DURING THE DAY/WAKE STATE: In the morning patient wake up tired, has difficulties to pay attention, has problems with concentration and anxiety. [place] sleepiness scale is 7. Patient does not take naps. PAST MEDICAL HISTORY: Lupus erythematosus, scleroderma, osteoarthritis. PAST SURGICAL HISTORY: Partial hysterectomy. MEDICATIONS: Please see below, oxycodone on as needed basis for pain in the evening before bedtime. SOCIAL HISTORY: Please see below. FAMILY HISTORY: Please see below. REVIEW OF SYSTEMS: Difficulties to initiate sleep, multiple awakenings from sleep. No fevers. No double vision. No recent chest pain. No shortness of breath. No abdominal pain. No bleeding episodes. No blood in urine. No seizure episodes. PHYSICAL EXAMINATION: GENERAL: A pleasant patient without any distress. VITAL SIGNS: Please see below, weight 148 pounds, BMI 26.2. HEENT: PERRLA, EOMI. Evaluation of oropharynx showed tongue protrudes midline, low position of soft palate Mallampati 4. NECK: Supple. No JVD. Thyroid is not palpable. 13 inches in circumference. LUNGS: Clear to percussion and to auscultation. Good air exchange. No wheezing or rhonchi. HEART: S1, S2 regular. No murmurs, gallops or rubs. ABDOMEN: Soft and nontender. Bowel sounds are present. No organomegaly appreciated. EXTREMITIES: No clubbing or cyanosis. 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 Cranial nerves 2 to 7 intact. There is no fasciculation or atrophy noted. No focal deficits observed. ASSESSMENT: 1. Multiple awakenings from sleep, extremely low position of soft palate Mallampati 4. Possible obstructive sleep apnea hypopnea syndrome. 2. Psychophysiological insomnia. 3. History of lupus erythematosus. 4. History of scleroderma. 5 osteoarthritis. 6 . Status post partial hysterectomy. 7. History of anxiety. 8. History of using oxycodone at bedtime for pain, opioids may increase risk for central sleep apnea. PLAN: 1. Polysomnography for evaluation of patient's breathing during sleep. 2. I discussed with patient psychological techniques for treatment of insomnia including stimulus control, paradoxical intention, worried time, no watching Tiburcio Garibay MD.. 3. Preferable position during sleep on the side. 4. No driving if patient feels any sleepiness. Patient is aware of civil and criminal liability for unsafe driving. 5. Sleep hygiene with regular sleep time for at least 7.5-8 hours. 6. Watching weight. 7. Bright light in the morning after awakenings and no bright light in the evening before bedtime. 8. Following plan after reading sleep study. Thank you very much for referring this patient for consultation. Sincerely, Дмитрий Bell MD, PhD, FAASM. Diplomat of [place] [employer], Sleep Medicine Board by [employer] [facility] [place] Past Medical History Past Medical History: Diabetes Mellitus, Eye Disorder, Hypertension, Thyroid Disorder Additional Past Medical History / Comment(s): Dry eye History of Any Multi-Drug Resistant Organisms: None Reported Past Surgical History: Bariatric Surgery, Section, Cholecystectomy, Joint Replacement, Tubal Ligation Additional Past Surgical History / Comment(s): left knee , lap band , sleeve, cataracts, carpel tunnel bilateral, thyroid surgery, cyst L hip. Past Anesthesia/Blood Transfusion Reactions: No Reported Reaction Past Psychological History: No Psychological Hx Reported Smoking Status: Former smoker Past Alcohol Use History: Occasional - Past Family History Father Family Medical History: Hypertension Medications and Allergies Home Medications Medication Instructions Recorded Confirmed Type Levothyroxine Sodium [Synthroid] 137 mcg PO DAILY 04/13/24 06/01/24 History Magnesium 200 mg PO HS 04/13/24 06/01/24 History Melatonin 20mg 20 mg PO HS PRN 04/13/24 06/01/24 History Neuro Tonix 2 cap PO HS 04/13/24 06/01/24 History Olmesartan Medoxomil [Benicar] 40 mg PO DAILY 04/13/24 06/01/24 History Potassium Citrate 99 mg PO HS 04/13/24 06/01/24 History Venlafaxine HCl ER [Effexor XR] 75 mg PO DAILY 04/13/24 06/01/24 History glipiZIDE XL [Glucotrol XL] 2.5 mg PO DAILY 04/13/24 06/01/24 History metFORMIN HCL 1,000 mg PO BID 04/13/24 06/01/24 History traMADol HCl [Ultram] 50 mg PO BID PRN 04/13/24 06/01/24 History Furosemide [Lasix] 20 mg PO DAILY 05/31/24 06/01/24 History Allergies Allergy/AdvReac Type Severity Reaction Status Date / Time vancomycin Allergy Red Man Verified 06/01/24 07:06 Syndrome Sleep Note - Sleep Note Sleep Note: Temperature: Pulse Rate: Respiratory Rate: Blood Pressure: SpO2: Height: Weight: BMI: Neck Circumference: Past Medical History Past Medical History: Cancer, Osteoarthritis (OA) Additional Past Medical History / Comment(s): hx. endometriosis,. mass found on lip. sent to plastic surgery- for removal of mass. 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 today was day 9. lupus, scleroderma. History of Any Multi-Drug Resistant Organisms: None Reported Past Surgical History: Tubal Ligation Additional Past Surgical History / Comment(s): lapararoscopy, colonoscopy Past Anesthesia/Blood Transfusion Reactions: Motion Sickness Past Psychological History: No Psychological Hx Reported Smoking Status: Never smoker Past Alcohol Use History: Rare Past Drug Use History: None Reported - Past Family History Mother Family Medical History: Asthma, Cancer, Coronary Artery Disease (CAD), Fibr omyalgia, GERD/Reflux, Hyperlipidemia, Hypertension, Osteoarthritis (OA) Additional Family Medical History / Comment(s): headaches, insomnia, ulcers Medications and Allergies Home Medications Medication Instructions Recorded Confirmed Type Ibuprofen 800 mg PO Q8H PRN 02/03/17 04/12/19 History Acetaminophen [Tylenol Extra 1,000 mg PO Q8H PRN 04/09/19 04/12/19 History Strength] Phentermine HCl [Adipex-P] 37.5 mg PO DAILY 04/09/19 04/12/19 History Vitamin C/Biotin [Hair, Skin and 1 tab PO DAILY 04/09/19 04/12/19 History Nails] guaiFENesin-DM 600/30MG [Mucinex 1 each PO Q12HR PRN 04/09/19 04/12/19 History Dm] HYDROcodone/APAP 5-325MG [[place] 1 tab PO Q4HR PRN #30 tab 04/13/19 Rx 5-325] Ibuprofen [Motrin] 600 mg PO Q6HR PRN #30 tab 04/13/19 Rx Hydrocodone/Acetaminophen [[place] 1 each PO Q6HR PRN #15 tab 11/13/19 08/23/24 Rx 5-325] Celecoxib 200 mg PO DAILY 08/23/24 08/23/24 History Methotrexate [Jylamvo] 2.5 mg PO WEEKLY 08/23/24 08/23/24 History Semaglutide [Wegovy] 2.4 mg SQ WEEKLY 08/23/24 08/23/24 History buPROPion HCL [buPROPion HCL XL] 300 mg PO DAILY 08/23/24 08/23/24 History Allergies Allergy/AdvReac Type Severity Reaction Status Date / Time peanut Allergy Severe Anaphylaxis Verified 11/13/19 23:11 gluten Allergy Abdominal Verified 11/13/19 23:11 Pain, diarrhea cat dander AdvReac Unknown Unknown Verified 11/13/19 23:11 Sleep Note - Sleep Data ESS Total: 7 - Sleep Note Sleep Note: Temperature: 98 F Pulse Rate: 88 Respiratory Rate: 16 Blood Pressure: 136/84 SpO2: 99 Height: 5 ft 3 in Weight: 67.132 kg BMI: Neck Circumference: 13
== END ==
LOC: 3 N SLEEP 14:35
PROVIDERS: ATTEND Internal Medicine
DX: F51.04 Psychophysiologic insomnia (principal); M19.91 Primary osteoarthritis, unspecified site; Z87.2 Personal history of diseases of the skin and subcutaneous tissue; Z90.710 Acquired absence of both cervix and uterus; Z86.59 Personal history of other mental and behavioral disorders; Z91.018 Allergy to other foods; Z91.010 Allergy to peanuts; Z91.09 Other allergy status, other than to drugs and biological substances; Z86.2 Personal history of diseases of the blood and blood-forming organs and certain disorders involving the immune mechanism
CPT/HCPCS: 99211

== ENCOUNTER 2024-09-25 19:35 | Outpatient (CLI) | payer BC ==
--- NOTE | 2024-10-04 11:48 | P.PCN ---
Description of Procedure: POLYSOMNOGRAPHY REPORT PROCEDURE(S)/DATE(S): Polysomnography 09/25/2024 CLINICAL: Patient has been seen in the sleep center for evaluation of obstructive sleep apnea-hypopnea syndrome. Please see my consultation. Sleep study has been done for evaluation of patient breathing during the sleep. PROCEDURE: The standard montage for clinical polysomnography included the electroencephalogram, the electrooculogram, the mentalis surface electromyography and Lead II cardiography. The respiratory battery consisted of measurements of nasal/buccal air flow, pressure transducer measurements from nose, thoracic and/or abdominal effort and intercostal surface electromyography. Video monitoring has been done to check for any parasomnia events. Nocturnal oxyhemoglobin saturations were obtained by finger oximetry. Step-carey titration with positive airway pressure was utilized to control the respiratory events, if necessary. RESULTS: During the diagnostic sleep study sleep efficiency was decreased to 76.9%. Latency to sleep onset was prolonged to 50.5 min. Sleep architecture showed stage NI was increased to 19.3%, Delta sleep was absent 0%, REM sleep was in high range 28.3%. Respiratory channel showed 0 obstructive apneas, 0 mixed apneas, 0 central apneas, 2 hypopneas with lowest oxygen level 92%. Total apnea hypopnea index was 0.4. Heart rate was in the range between 71 and 81, average 75. EMG showed 0 periodic limb movements per hour with 0 micro-arousals per hour. IMPRESSIONS: 1. No significant respiratory abnormalities have been documented during the sleep study, normal oxygenation during sleep. 2. No significant periodic limb movements have been documented. 3. Low sleep efficiency and prolonged sleep latency may indicate insomnia versus first night adaptation response. Please see other impressions from consultation PLAN: 1. Sleep hygiene with regular time in bed for at least 7-1/2 hours. 2. No driving if feeling sleepiness. Thank you very much for allowing me to participate in the management of your patient. Sincerely, Дмитрий Bell MD, PhD, FAASM. Diplomat of [place] [employer], Sleep Medicine Board by [employer] [facility] [facility] [place] cc: Debbie Corado MD
== END 2024-09-26 05:17 | disposition home or self-care (01) ==
LOC: 3 N SLEEP 19:35
PROVIDERS: ATTEND Internal Medicine
DX: G47.33 Obstructive sleep apnea (adult) (pediatric) (principal); Z91.018 Allergy to other foods; Z91.048 Other nonmedicinal substance allergy status
CPT/HCPCS: 95810

== ENCOUNTER → 2024-11-27 | Outpatient (CLI) | payer BC ==
--- NOTE | 2024-11-27 15:32 | MM ---
Reason for Exam: Screening (asymptomatic). Last mammogram was performed 1 year(s) and 2 month(s) ago. Patient History: Menarche at age 11. First Full-Term at age 15. Hysterectomy at age 43. Other cancer. Estrogen for 6 months. Hormonal Contraceptives for 6 months. Mother had ovarian cancer, age 39. Risk Values: Kateryna 5 year model risk: 0.7%. NCI Lifetime model risk: 7.5%. Prior Study Comparison: 08/20/2021 Bilateral Screening Mammogram, [facility]. 09/09/2022 Bilateral MG 3D screening mammo w/cad, [facility]. 09/22/2023 Bilateral MG 3D screening mammo w/cad, [facility]. Tissue Density: There are scattered areas of fibroglandular density. Findings: Analyzed By CAD. Stable circumscribed 17 mm mass in the right breast anteriorly seen best on CC images. There is no suspicious group of microcalcifications or new suspicious mass in either breast. Overall Assessment: Benign, BI-RAD 2 Management: Screening Mammogram of both breasts in 1 year. . Patient should continue monthly self-breast exams. A clinical breast exam by your physician is recommended on an annual basis. This exam should not preclude additional follow-up of suspicious palpable abnormalities. Note on Kateryna scores and lifetime risk: 1. A Kateryna score greater than 3% is considered moderate risk. If this is the case, consider specialist referral to assess eligibility for a risk reducing agent. 2. If overall lifetime risk for the development of breast cancer is 20% or higher, the patient may qualify for future screening with alternating mammogram and breast MRI. [facility], , 11/27/2024 3:29 PM. Electronically signed and approved by: Russel Arenas M.D.
== END | disposition home or self-care (01) ==
LOC: RADMAMWWP 15:01
PROVIDERS: ATTEND Family Medicine
DX: Z12.31 Encounter for screening mammogram for malignant neoplasm of breast (principal); R92.323 Mammographic fibroglandular density, bilateral breasts; Z92.0 Personal history of contraception
CPT/HCPCS: 77063; 77067

== ENCOUNTER → 2025-01-11 | Outpatient (CLI) | payer BC ==
--- NOTE | 2025-01-11 08:34 | USB ---
Patient History: Menarche at age 11. First Full-Term at age 15. Hysterectomy at age 43. Other cancer. Estrogen for 6 months. Hormonal Contraceptives for 6 months. Mother had ovarian cancer, age 39. Risk Values: Kateryna 5 year model risk: 0.7%. NCI Lifetime model risk: 7.5%. Technique: Method: Targeted. Prior Study Comparison: 09/09/2022 Bilateral MG 3D screening mammo w/cad, [facility]. 09/22/2023 Bilateral MG 3D screening mammo w/cad, [facility]. 11/27/2024 Bilateral MG 3D screening mammo w/cad, [facility]. Findings: The axilla of the right breast and the retroareolar of the right breast were scanned. Technique utilized:US breast limited RT Image; Ultrasound imaging of: All 4 quadrants, the retroareolar region and axilla. Hypoechoic oval-shaped lesion posterior right right nipple measuring 11 x 5 x 15 mm 2.0 cm deep from skin. Finding could represent complicated cyst versus solid mass such as fibroadenoma versus other. This finding likely correlates to finding of focal asymmetry on mammography within the right breast middle depth 5-6 images from the nipple dating back to at least 07/08/2016. This likely is benign given stability. Overall Assessment: Benign, BI-RAD 2 Management: Screening Mammogram of both breasts in 1 year. A clinical breast exam by your physician is recommended on an annual basis and results should be correlated with mammographic findings. This exam should not preclude additional follow-up of suspicious palpable abnormalities. Results were given to the patient verbally at the time of exam. [facility], , 01/11/2025 7:56 AM. Electronically signed and approved by: Brian Tian DO
== END | disposition home or self-care (01) ==
LOC: RADUSWWP 07:18
PROVIDERS: ATTEND Family Medicine
DX: R92.8 Other abnormal and inconclusive findings on diagnostic imaging of breast (principal); Z92.0 Personal history of contraception